=== PATIENT | female | born 1990 | race Two or more races ===

== ENCOUNTER 2019-12-13 01:34 | Emergency (ER) | payer SELFPAY ==
[~2019-12-13] VITALS: Ht 157.5 cm; Wt 68.0 kg
--- NOTE | 2019-12-13 01:40 | NUR ---
PT [id number] ETOH, DROVE AND STOPPED IN THE MIDDLE OF STREET. PT AAOX4, VSS, RESPIRATIONS EVEN AND UNLABORED ON RA W/ NAD NOTED. PT CONNECTED TO THE MONITOR AND POX
--- NOTE | 2019-12-13 03:16 | NUR ---
Patient discharged to home in stable condition. Written and verbal after care instructions given. Patient verbalizes understanding of instruction.pt. ambulatory with a steady gait
[2019-12-13 03:17] VITALS: BP 123/84
== END 2019-12-13 03:18 | disposition home or self-care (01) ==
LOC: ER 01:37
DX: F10.129 Alcohol abuse with intoxication, unspecified (principal); Y90.9 Presence of alcohol in blood, level not specified
CPT/HCPCS: 82962-TC